=== PATIENT | male | born 1965 | race Caucasian/White ===

== ENCOUNTER → 2024-06-25 | Outpatient (CLI) | payer OTHER ==
--- NOTE | 2024-06-25 15:34 | US ---
EXAMINATION TYPE: US thyroid st tissue head/neck DATE OF EXAM: 06/25/2024 COMPARISON: NONE CLINICAL INDICATION: Male, 59 years old with history of R221 NECK NODULE; Patient has felt a lump in the left neck just inferior to the ear x 2 years. TECHNIQUE: Scanned area of palpable concern left neck. Grayscale and color Doppler imaging. FINDINGS: *Hypoechoic, vascular area seen within the left neck at patient's palpable area of concern : 1.6 x 0.9 x 1.0 cm. IMPRESSION: Hypoechoic soft tissue vascular mass in the area of the left parotid gland measuring up to 1.6 cm. Fi nding could represent benign or malignant etiologies are favored to be benign or Warthin gland tumor versus pleomorphic adenoma. [facility], , 06/25/2024 3:32 PM
--- NOTE | 2024-06-25 15:41 | US ---
EXAMINATION TYPE: US scrotum with doppler. DATE OF EXAM: 06/25/2024 COMPARISON: NONE CLINICAL INDICATION: Male, 59 years old with history of N433 HYDROCELE; Growth within left testicle x 2 years. Pt states area has gotten larger. TECHNIQUE: Grayscale, color Doppler and spectral Doppler imaging of the scrotum. FINDINGS: EXAM MEASUREMENTS: TESTICLES: Right Testicle: 4.9 x 2.8 x 2.3 cm Left Testicle: 4.8 x 2.6 x 2.5 cm EPIDIDYMIS HEAD: Right Epididymis: 0.6 x 0.8 x 1.0 cm. Anechoic area seen: 0.3 x 0.3 x 0.4 cm. Left Epididymis: 2.5 x 2.3 x 1.6 cm. *Multiple anechoic/ minimally complex areas seen within the ep ididymis. The largest simple appearing 1.6 x 2.4 x 1.3 cm with suggestive debris. Doppler performed to assess for testicular vascularity; good bilateral color flow and spectral wavefo galen are seen. There is increased vascularity is slightly on the right compared to left. Presence of hydroceles: Yes, right: 4.2 x 1.1 x 0.8 cm. Left with internal echoes noted: 4.2 x 1.9 x 1.0 cm. Presence of varicoceles: No IMPRESSION: 1. Bilateral hydroceles with debris. 2. Left epididymal head simple appearing cyst measuring up to 2.4 cm possible spermatocele given natanael e internal echoes. 3. There is slight increased vascularity within the right testis compared to the left correlate for epididymoorchitis no signs and symptoms of infection finding could be due to technique. [facility], , 06/25/2024 3:39 PM
--- NOTE | 2024-06-25 15:43 | XR ---
EXAMINATION TYPE: XR foot complete RT DATE OF EXAM: 06/25/2024 3:19 PM COMPARISON: None CLINICAL INDICATION: Male, 59 years old with history of B070 PLANTAR WART OF RIGHT FOOT; PHH, pain TECHNIQUE: XR foot complete RT examined in the AP, oblique, and lateral projections. FINDINGS: No evidence of any acute osseous pathology. Calcaneal plantar spurring is present. Plantar wart not definitively visualized. No radiopaque foreign body. IMPRESSION: No evidence of acute fracture. [facility], , 06/25/2024 3:41 PM
--- NOTE | 2024-06-25 18:44 | CTL ---
EXAMINATION TYPE: CT Low Dose Lung DATE OF EXAM: 06/25/2024 4:08 PM COMPARISON: None. CLINICAL INDICATION: Male, 59 years old with history of R22.1 MASS AND LUMP; smoker, history of tobac co use. TECHNIQUE: Multiple axial non-contrast scans were obtained from approximately the lung apices through the upper abdomen. Coronal and sagittal reformatted images were obtained. Low dose technique was uti lized. MIP were created on a separate workstation and submitted for review. CT DLP: 75.1 mGycm, Automated exposure control for dose reduction was used. CT Contrast: Contrast used: None Oral contrast used: None FINDINGS: Lack of intravenous contrast and low dose technique limits the evaluation of the vascular and soft ti ssue structures. LUNGS: No evidence of pulmonary fibrosis. No evidence of focal consolidation, pneumothorax or pleural effusion. Centrilobular and paraseptal emphysema changes. Nodules: RUL: None. RML: None. RLL: None. ANURADHA: None. LLL: None. AIRWAY: Patent and unremarkable. HEART: Size within normal limits.Atherosclerosis of the arterial vasculature. MEDIASTINUM: No gross evidence of adenopathy. VASCULATURE: No aortic aneurysm. MUSCULOSKELETAL: No acute osseous abnormalities SOFT TISSUES/LYMPH NODES: Unremarkable. LOWER NECK: No significant findings. UPPER ABDOMEN: Simple appearing right renal cyst. IMPRESSION: 1. No clinically significant pulmonary nodules. 2. Mild emphysema. CT LUNG RAD AND CT CHEST RECOMMENDATION: Lung-Rad 2 Benign Appearance or Behavior: Continue annual sc reening with LDCT in 12 months. S Modifier (other clinically significant findings): None Recommend smoking cessation (if current smoker), or continuation of smoking cessation (if prior smoke r). Annual screening for lung cancer with low-dose computed tomography is recommended in adults ages 55 to 77 years who have a 30 pack-year smoking history and currently smoke or have quit within the pa st 15 years. Screening should be discontinued once a person has not smoked for 15 years or develops a health problem that substantially limits life expectancy or the ability or willingness to have curat bren lung surgery. Lung rads 2021 [email or web address] [facility], , 06/25/2024 6:41 PM
== END | disposition home or self-care (01) ==
LOC: RADUSWWP 14:21
PROVIDERS: ATTEND Internal Medicine
DX: Z12.2 Encounter for screening for malignant neoplasm of respiratory organs (principal); J43.9 Emphysema, unspecified; R22.1 Localized swelling, mass and lump, neck; F17.210 Nicotine dependence, cigarettes, uncomplicated; N43.3 Hydrocele, unspecified; B07.0 Plantar wart; N45.3 Epididymo-orchitis; R22.0 Localized swelling, mass and lump, head
CPT/HCPCS: 71271; 76536; 76870; 93975

== ENCOUNTER → 2024-12-17 | Outpatient (CLI) | payer OTHER ==
[2024-12-17 10:30] LABS: Basophils # (A) 0.09 X 10*3/uL (0.00-0.10); Basophils % (A) 1.3 %; Eosinophils % (A) 2.8 %; HCT 43.3 % (39.6-50.0); HGB 14.7 g/dL (13.0-17.0); Lymphocytes # (A) 2.02 X 10*3/uL (0.90-5.00); Lymphocytes % (A) 28.2 %; MCH 29.6 pg (27.0-32.0); MCHC 33.9 g/dL (32.0-37.0); MCV 87.3 FL (80.0-97.0); Mean Platelet Volume 8.8 FL (9.5-12.2); Monocytes # (A) 0.64 X 10*3/uL (0.20-1.00); Monocytes % (A) 8.9 %; NRBC Per 100 WBC 0 X 10*3/uL (0.00-0.01); Neutrophils % (A) 58.5 %; Platelet Count 372 X 10*3/uL (140-440); RBC 4.96 X 10*6/uL (4.40-5.60); RDW 13.6 % (11.5-14.5); WBC 7.17 X 10*3/uL (4.50-10.00)
[2024-12-17 16:12] LABS: ALT 23 U/L (10-49); AST 18 U/L (14-35); Albumin 4.2 g/dL (3.8-4.9); Albumin/Globulin Ratio 1.83 Ratio (1.60-3.17); Alkaline Phosphatase 64 U/L (41-126); BUN/Creat Ratio 19.64 Ratio (12.00-20.00); Blood Urea Nitrogen 21.6 mg/dL (9.0-27.0); Calcium 9.2 mg/dL (8.7-10.3); Carbon Dioxide 24.4 mmol/L (21.6-31.8); Chloride 106 mmol/L (96-109); Chol/HDL Ratio 2.65 Ratio; Globulin 2.3 g/dL (1.6-3.3); Glucose 104 mg/dL (70-110); LDL Cholesterol,Calculated 102.5 mg/dL (0.0-131.0); Potassium 4.5 mmol/L (3.5-5.5); Sodium 141 mmol/L (135-145); Total Bilirubin 0.4 mg/dL (0.3-1.2); Total Protein 6.5 g/dL (6.2-8.2); VLDL Calculation 18.82 mg/dL (5.00-40.00)
== END | disposition home or self-care (01) ==
LOC: LABWHC1 08:18
PROVIDERS: ATTEND Internal Medicine
DX: Z00.00 Encounter for general adult medical examination without abnormal findings (principal); Z12.5 Encounter for screening for malignant neoplasm of prostate; N40.0 Benign prostatic hyperplasia without lower urinary tract symptoms
CPT/HCPCS: 80061; 80053; 84443; 85025; 36415; G0103